=== PATIENT | female | born 1990 | race Caucasian/White ===

== ENCOUNTER 2017-02-26 08:43 | Observation (INO) | payer OTHER ==
[2017-02-26 09:16] VITALS: BMI 32.4
[2017-02-26] MEDS ORDERED: Lactated Ringer's 1,000 ML IV SCH ×2 (10:00→17:45)
--- NOTE | 2017-02-26 11:41 | ULT ---
OB ULTRASOUND: HISTORY: Contractions. Assess weight. FINDINGS: Single intrauterine gestation. Gestational age by ultrasound is 36 weeks 4 days. BPD: 36 weeks 1 day HC: 36 weeks 6 days AC: 36 weeks 6 days FL: 36 weeks 6 days EFW: 3020 g (6 lbs 11 oz) HEART RATE: 133 PLACENTA: Anterior. PRESENTATION: Vertex. AMNIOTIC FLUID: Within the normal range. BALAJI recorded at 10.3 cm. IMPRESSION: [id number]-four-day gestational age by ultrasound. POS: LUZ
[2017-02-26 13:14] LABS: Bilirubin Negative (Negative); Blood, Urine Large (Negative); Glucose, Urine (Dipstick) Negative (Negative); Ketone, Urine 80 mg/dL (Negative); Nitrite Negative (Negative); Protein, Urine (Dipstick) Negative (Neg-Trace); Urobilinogen 0.2 mg/dL (0.2-1.0)
--- NOTE | 2017-02-26 13:16 | PDOC.LDPN ---
Labor & Delivery Progress Note - Subjective Subjective: other (Pt presents with c/o back pain radiating to the front that occurs bilaterally. Denies dysuria. Reports pain started last night. ) - Objective Vital signs reviewed and normal: yes General: NAD Uterine fundus: non tender Dilation: 3 Effacement: 50% Station: -2 FHT: category 1 (130s, mod chago, +accels, no decels ) [place] contractions every: q3-7 min, irregular ctx Other exam findings: No CVAT, no ttp on abd exam, - Assessment (1) 37 weeks gestation of Code(s): Z3A.37 - 37 WEEKS GESTATION OF Current Visit: Yes Status : Acute (2) Abdominal pain affecting Code(s): O26.899 - OTH RELATED CONDITIONS, UNSPECIFIED TRIMESTER; R10.9 - UNSPECIFIED ABDOMINAL PAIN Current Visit: Yes Status: Acute -: Check CBC, BMP and UA due to c/o pain in back and possible pyelo developing. Reviewed unchanged SVE. IVF given and pt given Stadol. Discussed with pt her decision regarding whether she desires a PLTCS vs VD if delivery is imminent and she is still undecided at this time. Pt feels that this baby is smaller than her last and the EFW is 3020g ([id number]) on sono today which is smaller than her last sono at [facility].
[2017-02-26 13:17] LABS: Bacteria/HPF Rare-Few HPF (None Seen); Hyaline Casts/LPF 0-3 HYALINE CAST LPF (0-3 Hyaline); Squamous Epithelial 0-3 HPF (0-3); WBC/HPF 0-3 HPF (0-3)
[2017-02-26 13:25] LABS: #Eosinphils 0.2 thou/uL (0.0-0.7); #Lymphocytes 1.6 thou/uL (1.20-3.40); #Monocytes 1.1 thou/uL (0.11-0.59); #Neutrophils 8.9 thou/uL (1.40-6.50); %Basophils 0.1 % (0.0-1.0); %Eosinophils 1.4 % (0.0-10.0); %Lymphocytes 13.9 % (21.0-51.0); %Monocytes 9.5 % (0.0-10.0); Hematocrit 36.2 % (36.0-47.0); Mean Platelet Volume 8.1 fL (7.4-10.4); White Blood Cell (WBC) Count 11.8 thou/uL (4.8-10.8)
[2017-02-26 13:33] LABS: RBC/HPF 21-50 HPF (0-3)
[2017-02-26 13:53] LABS: Anion Gap 17 mmol/L (10-20); BUN (Urea Nitrogen) 8 mg/dL (7.0-18.7); Calc. Creatinine Clearance 169 mL/min (70-130); Calcium 8.7 mg/dL (7.8-10.44); Carbon Dioxide 18 mmol/L (22-29); Chloride 106 mmol/L (98-107); Estimated GFR-MDRD Greater than 90
[2017-02-26] MEDS ORDERED: cefTRIAXone\\ROCEPHIN 1 GM in Sodium Chloride 0.9% 100 ML IVPB SCH (16:00)
[2017-02-26] MEDS ORDERED: Sodium Chloride 0.9% 100 ML ONE (16:51)
[2017-02-26] MEDS ORDERED: Ondansetron HCl/PF 4 MG/2 ML Vial IVP PRN (17:36)
[2017-02-26] MEDS ORDERED: Promethazine HCl 25 MG/ML VIAL IM PRN (17:36)
[2017-02-26] MEDS ORDERED: Acetaminophen 500 MG TAB PO PRN (17:36)
[2017-02-26] MEDS ORDERED: Zolpidem Tartrate 5 MG TAB PO PRN (17:36)
--- NOTE | 2017-02-26 17:42 | PDOC.LDHP ---
Labor and Delivery H&P Chief complaint: other (back pain ) HPI: 27 yo @ 37w2d by LMP c/w 8 week CRL who presents with c/o bilateral back pain that radiates to the front that started last night and worsened this morning. She denies any LOF, VB. Reports good FM. Denies any known dysuria. Denies n/v/f/c. Due date: 03/17/17 Dating criteria: last menstrual period Grav: 3 Para: 2 OB History Details: 1 PTFAVD @ 35 weeks due to PPROM,without complication; 2nd VD complicated by shoulder dystocia with 3506g baby with broken clavicle. Current complications: none Abnormal US findings: No Past Medical History: Anemia, asthma Current medications: pre- vitamins Previous surgical history: none Allergies/Adverse Reactions: Allergies Allergy/AdvReac Type Severity Reaction Status Date / Time aspirin Allergy Verified 02/26/17 17:48 Social history: none - Physical Exam Vital signs reviewed and normal: yes General: NAD, other (No overt CVAT, no abdominal tenderness ) Heart: RRR Lungs: nonlabored breathing Abdomen: gravid Extremeties: no edema FHT: category 1 (140s, mod chago, +accels, no decels ) [place] contractions every: irregular ctx - Vaginal Exam cm dilated: 3 (unchanged on exam today after observation ) Effacement: 50% Station: -2 - OB Labs Blood type: A RH: negative HIV: negative RPR: negative HEPSAg: negative 1 hour GCT: negative GBS: negative Urine drug screen: not done - Assessment 37w2d IUP Back and abdominal pain, presumed pyelonephritis H/O shoulder dystocia - Plan -: Labs and exam c/w possible early pyelo and not with labor at this time. Reviewed CBC, BMP and UA. Keep for IV Rocephin and for observation to see if sx improve with interventions. Reviewed unchanged SVE. IVF given and pt given Stadol. Discussed with pt her decision regarding whether she desires a PLTCS vs VD if delivery is imminent and she is still undecided at this time. Pt feels that this baby is smaller than her last and the EFW is 3020g (2gl32eg) on sono today which is smaller than her last sono at [facility]. Monitor sx and reassess in the AM.
[2017-02-27] MEDS ORDERED: Sodium Chloride 0.9% 1,000 ML IV SCH (03:30)
[2017-02-27 07:16] LABS: #Eosinphils 0.2 thou/uL (0.0-0.7); #Monocytes 0.9 thou/uL (0.11-0.59); #Neutrophils 7.2 thou/uL (1.40-6.50); %Basophils 0.2 % (0.0-1.0); %Monocytes 8.3 % (0.0-10.0); Hematocrit 31.3 % (36.0-47.0); Red Blood Cell (RBC) Count 3.34 mill/uL (4.20-5.40); White Blood Cell (WBC) Count 10.3 thou/uL (4.8-10.8)
[2017-02-27] MEDS ORDERED: Cephalexin 250 MG CAP PO SCH ×2 (08:41→12:00)
[2017-02-27 08:49] VITALS: BP 109/70; TEMP 98.7
--- NOTE | 2017-02-28 11:48 | DIS ---
DATE OF ADMISSION: 02/26/2017 DATE OF DISCHARGE: 02/27/2017 ADMISSION DIAGNOSES: 1. Acute back and abdominal pain. 2. A 37-week and 2-day intrauterine . 3. Presumed complicated urinary tract infection versus early pyelonephritis. DISCHARGE DIAGNOSES: 1. Acute back and abdominal pain. 2. A 37-week and 2 days intrauterine . 3. Presumed complicated urinary tract infection versus early pyelonephritis. ADMISSION AND DISCHARGE PHYSICIAN: Mylene Alcantar D.O. BRIEF HOSPITAL COURSE: Ms. Ghazala Wray is a 27-year-old G4, P2 @ 37w2d who was admitted with worsening back and abdominal pain. Patient underwent an evaluation and was found not to be in labor. She did have hematuria with leukocyte esterase in urine, the patient also complains of bilateral back pain. Patient was thought to possibly have complicated UTI versus an early pyelonephritis picture. She remained afebrile and without leukocytosis during her observation. The patient received IV fluid hydration as well as Rocephin. On the morning of 02/27/2017, patient stated that her pain was much improved and did not require any IV pain medication overnight. She requested to be discharged home and was instructed to complete antibiotic course for Keflex for possible pyelonephritis. She was tolerating general diet. Pain is controlled. Patient was discharged home. MEDICATIONS: Keflex 500 mg one tablet every 6 hours for 7 days. FOLLOWUP: Patient has an appointment scheduled for 03/04/2017 with her OB provider. ACTIVITY RESTRICTIONS: None. YOKASTA
--- NOTE | 2017-03-02 16:19 | CON ---
DATE OF CONSULTATION: 03/02/2017 REFERRING PHYSICIAN: Arlene Hurd M.D. REASON FOR CONSULT: Right hydronephrosis. HISTORY OF PRESENT ILLNESS: Ms. Wray is a 27-year-old female at 37 weeks average gestational age, due date of 03/18/2017, presented on Friday 3 days ago due to right flank pain. The patient was monitored; however, admitted due to persistent discomfort. The patient requires p.o. narcotics every 2 to 4 hours due to persistent right flank pain. She denies history of nausea, vomiting, fever, or gross hematuria. Denies prior history of kidney stones. Renal ultrasound was done on admission, 02/27/2017, demonstrating moderate right hydronephrosis with echogenic lower pole 5-mm likely renal stone, left kidney is grossly unremarkable. Ultrasound demonstrated bilateral ureteral jets consistent with no significant high-grade obstruction. She is currently being managed with IV fluids, pain management for a possible medical expulsion therapy on Flomax. Urologic consultation was obtained by INSURANCE SALES SUPERVISOR this morning with requesting assistance regarding treatment of her right hydronephrosis. She did receive a gram of Rocephin on Friday. Urine dip is contaminated. Urine culture on 02/26/2017 demonstrates skin talya. The patient's family, and 2 children are at bedside. PAST MEDICAL HISTORY: None. PAST SURGICAL HISTORY: None. ALLERGIES: ASPIRIN. REVIEW OF SYSTEMS: Ten point review of systems as above. PHYSICAL EXAMINATION: VITAL SIGNS: Stable at 98.8, 97, 20, 101/63. I's and O's are 11,000 in, output is 5.4 liters. She is positive 6 liters. GENERAL: The patient appears to be in no acute distress at this time. HEENT: Unremarkable. HEART: Regular rate. LUNGS: Clear. ABDOMEN: Gravid Uterus. Subjective area of discomfort in the right lower back. GENITOURINARY: Not performed at this time. EXTREMITIES: Demonstrates bilateral pedal edema. PERTINENT LABS AND IMAGING: On admission, white count is 11.8, currently 13.1; hemoglobin 10.8 and platelets 275. There is no significant left shift that is from 02/27/2017. Creatinine is 0.6. These labs are from 02/27/2017. On 2016, urine demonstrates a contaminated specimen with 7 to 10 epithelial cells, greater than 50 rbc's, 7 to 10 wbc's, negative nitrites. Culture demonstrating mixed talya. Renal ultrasound report as above with moderate right hydronephrosis, possible right lower pole echogenic 5-mm renal calculi, bilateral ureteral jets. IMPRESSION AND PLAN: Ms. Wray is a 27-year-old female at 37 weeks average gestational age, due date 03/18/2017, presents with moderate hydronephrosis, likely right nonobstructing 5-mm renal lithiasis. Right hydronephrosis possible due to due to an occult ureteral stone; however, this is not adequately staged on renal ultrasound. There is no evidence of high- grade obstruction on previous renal ultrasound obtained 3 days ago. I will repeat the renal bladder ultrasound. I discussed with the patient regarding options of limited IVP to stage location/ degree of stone. She is open to this. I do have concerns regarding retrograde stent placement due to the patient having intermittent contractions, moreover gravid uterus at 37 weeks. If intractable pain, I discussed with patient regarding options of percutaneous nephrostomy tube placement, definitive CT after delivery and proceeding with stone treatment at elective date. YOKASTA
== END 2017-02-27 09:45 | disposition home health service (06) ==
LOC: L&D/OP 08:43 → L&D 18:42
PROVIDERS: ADMIT Obstetrics & Gynecology; ATTEND Obstetrics & Gynecology
DX: O99.89 Other specified diseases and conditions complicating pregnancy, childbirth and the puerperium (principal); R10.9 Unspecified abdominal pain; M54.9 Dorsalgia, unspecified; D64.9 Anemia, unspecified; J45.909 Unspecified asthma, uncomplicated; N13.30 Unspecified hydronephrosis; Z3A.37 37 weeks gestation of pregnancy; Z79.899 Other long term (current) drug therapy; Z88.6 Allergy status to analgesic agent; Z87.59 Personal history of other complications of pregnancy, childbirth and the puerperium
CPT/HCPCS: 36415; 76805; 80048; 81001; 85025; 87086; J0595; J0696; J7050

== ENCOUNTER 2017-02-27 20:03 | Inpatient (IN) | payer OTHER ==
[2017-02-27] MEDS ORDERED: Promethazine HCl 25 MG/ML VIAL IM PRN (22:06)
[2017-02-27 22:12] LABS: #Eosinphils 0.2 thou/uL (0.0-0.7); #Lymphocytes 1.9 thou/uL (1.20-3.40); #Monocytes 1.3 thou/uL (0.11-0.59); #Neutrophils 9.7 thou/uL (1.40-6.50); %Basophils 0.4 % (0.0-1.0); %Eosinophils 1.3 % (0.0-10.0); %Lymphocytes 14.6 % (21.0-51.0); %Monocytes 9.5 % (0.0-10.0); Mean Platelet Volume 7.6 fL (7.4-10.4); Red Blood Cell (RBC) Count 3.53 mill/uL (4.20-5.40); White Blood Cell (WBC) Count 13.1 thou/uL (4.8-10.8)
--- NOTE | 2017-02-27 22:14 | PRG ---
FOLLOWUP ULTRASOUND DATE OF SERVICE: 02/27/2017 SUBJECTIVE: I was just notified by the patient's nurse that ultrasound has given a verbal report re garding the patient's right renal ultrasound. A right renal stone is seen consistent with renal col ic. She does have ureteral jets, so there is no evidence of obstruction. I have ordered Flomax for better pain control. I have also notified Mylene Katharine, who saw the patient earlier this morning to let her know that she was here and will likely be watched overnight. We will likely watch her o n antepartum with possible release tomorrow. There is no evidence of labor at this time. We are st ill awaiting the CBC and a complete metabolic profile at this time.
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
[2017-02-27] MEDS: cefTRIAXone\\ROCEPHIN 1 GM in Sodium Chloride 0.9% 100 ML IVPB SCH (22:25)
--- NOTE | 2017-02-27 22:27 | PRG ---
DATE OF SERVICE: 02/27/2017 TIME: 2210 hours. In brief, after my communication with Dr. Mylene Alcantar, Dr. Alcantar has requested to continue her R ocephin, which she began yesterday for suspected UTI. I did notify her that her urine culture from yesterday was no growth at 24 hours. Nonetheless, to prevent superinfection we have ordered Rocephi n 1 gram IV to be given now. I have also ordered her Flomax as 0.4 mg to be given. Once the CBC an d CMP return, we will transfer her to [address] [place] [address]/antepartum for overnight observation. DIAGNOSIS: Renal colic, right side.
[2017-02-27] MEDS: Tamsulosin HCl 0.4 MG CAP PO SCH (22:34)
[2017-02-27 22:35] LABS: ALT (SGPT) 7 U/L (8-55); AST (SGOT) 12 U/L (5-34); Alkaline Phosphatase 120 U/L (40-150); Anion Gap 13 mmol/L (10-20); BUN (Urea Nitrogen) Less than 4 mg/dL (7.0-18.7); Bilirubin, Total 0.3 mg/dL (0.2-1.2); Calc. Creatinine Clearance 163 mL/min (70-130); Calcium 8.7 mg/dL (7.8-10.44); Carbon Dioxide 20 mmol/L (22-29); Chloride 108 mmol/L (98-107); Estimated GFR-MDRD Greater than 90; Globulin 2.9 g/dL (2.4-3.5)
--- NOTE | 2017-02-27 23:43 | ULT ---
BILATERAL RENAL ULTRASOUND 02/27/17 HISTORY: Right sided flank pain. TECHNIQUE: Multiplanar nguyen scale and color doppler images were obtained in a renal ultrasound. FINDINGS: There is moderate right sided hydronephrosis. There is an echogenic focus in the lower pole of the r ight kidney measuring 5 mm in greatest dimension which may represent a renal calcification. The left kidney shows no evidence of hydronephrosis or shadowing calculi. The kidneys measure 11.6 and 10.0 cm in length on the right and left, respectively. Limited visualization of the urinary bladder is unremarkable. Both ureteral jets are visualized. IMPRESSION: There is right sided hydronephrosis. This could be secondary to a distal ureteral calcification not visualized or secondary to compression of the ureter by the gravid uterus. POS: LUZ
[2017-02-27 23:51] LABS: Bacteria/HPF None Seen HPF (None Seen); Hyaline Casts/LPF 7-10 HYALINE CAST LPF (0-3 Hyaline); RBC/HPF GREATER THAN 50-TNTC HPF (0-3); Renal Epithelial None Seen HPF (0-3); Transitional Epithelial NONE SEEN HPF (0-3); Trichomonas/HPF None Seen HPF (None Seen)
[2017-02-28] MEDS: Lactated Ringer's 1,000 ML IV SCH ×6 (00:38→22:03)
[2017-02-28] MEDS ORDERED: Morphine Sulfate 2 MG/ML SYRINGE SLOW IVP SCH (01:30)
[2017-02-28] MEDS ORDERED: Morphine Sulfate 2 MG/ML SYRINGE ONE (01:31)
[2017-02-28 01:44] VITALS: BMI 31.2
[2017-02-28] MEDS ORDERED: cefTRIAXone\\ROCEPHIN 1 GM in Sodium Chloride 0.9% 100 ML IVPB SCH (07:00)
[2017-02-28] MEDS: Tamsulosin HCl 0.4 MG CAP PO SCH (08:46)
[2017-02-28] MEDS: HYDROcodone/Acetaminophen 10/325 mg Tablet PO PRN ×4 (08:46→22:03)
[2017-02-28] MEDS: Prenatal Vitamin 1 TAB PO SCH (08:46)
--- NOTE | 2017-02-28 10:22 | PRG ---
DATE OF SERVICE: 02/28/2017 HISTORY OF PRESENT ILLNESS: A 27-year-old at 37 weeks and 4 days, who was recently admitted for presumed possible complicated urinary tract infection versus early pyelonephritis, who was readmitted yesterday evening with complaints of worsening right flank pain. The patient underwent imaging demonstrating right nephrolithiasis, nonobstructing and has undergone observation with pain management. SUBJECTIVE: The patient reports that her pain has continued throughout the evening. She has had some slight pain relief with IV Stadol, however, she then had increased pain this morning. She denies fevers or chills. Reports some nausea. Denies any vomiting. The patient is able to tolerate diet. She reports some blood within her urine this morning. OBJECTIVE: VITAL SIGNS: Stable. The patient remains afebrile. CARDIOVASCULAR: Regular rate. RESPIRATORY: Unlabored breathing. ABDOMEN: Soft, mild tenderness to palpation along the right flank down to the right groin area. No left-sided costovertebral angle. Tenderness on the right side of the patient's back was not present yesterday. EXTREMITIES: No edema and negative [place] wnl LABORATORY DATA: WBC is 13.1, hemoglobin 10.8, hematocrit 33.0, neutrophils 74.2%. Creatinine is 0.61. Her AST is 12 and ALT is 7. Microscopic urine demonstrated some blood; however, does not show signs of infection today, but the patient did receive IV antibiotics x2 doses. We will await complete urine culture. ASSESSMENT AND PLAN: Ms. Ghazala Wray is a 27-year-old at 37 weeks and 4 days with renal colic and possible urinary tract infection versus early pyelonephritis. The patient received 2 doses of Rocephin. We will continue until urine culture complete. The patient was given pain management regimen and added oral [place] to regimen to improve her pain. Started Flomax to help expedite the passage of the right renal stone. [facility] q shift. Plan for continued observation today with possible d/c tomorrow depending on pain mgmt. Strain urine for stone. MTDD
[2017-02-28] MEDS ORDERED: Famotidine 20 MG TAB PO SCH (16:45)
[2017-02-28 17:46] LABS: Amnisure Test No Membranes Rupture (No Rupture)
[2017-02-28] MEDS: cefTRIAXone\\ROCEPHIN 1 GM in Sodium Chloride 0.9% 100 ML IVPB SCH (22:03)
[2017-03-01] MEDS: HYDROcodone/Acetaminophen 10/325 mg Tablet PO PRN ×4 (01:38→14:20)
[2017-03-01] MEDS: Lactated Ringer's 1,000 ML IV SCH ×4 (03:42→15:30)
[2017-03-01] MEDS: Famotidine 20 MG TAB PO SCH (10:38)
[2017-03-01] MEDS: Prenatal Vitamin 1 TAB PO SCH (10:38)
--- NOTE | 2017-03-01 12:17 | PRG ---
DATE OF SERVICE: 03/01/2017 SUBJECTIVE: The patient was feeling a little better yesterday, but started having significant pain again overnight. Per nurse, she had a very rough night. She has been taking [place] for a right-side d nephrolithiasis with renal colic and possible urinary tract infection versus early pyelonephritis. She has also been on Rocephin. On imaging, this stone was not obstructing. The patient reports t hat when she has the flank pain, she starts having contractions as well. She denies any fevers or c hills and is able to tolerate a diet with some nausea. OBJECTIVE: VITAL SIGNS: Temperature 98.5, blood pressure 107/58, pulse 88, respiratory rate 18. GENERAL: Awake, alert, in no acute distress. ABDOMEN: Soft, gravid, nontender to palpation. Right flank tender to palpation. ASSESSMENT AND PLAN: A 27-year-old G3, P2 at 37 weeks and 5 days with renal colic and possibly urin william tract infection versus early pyelonephritis. She is receiving Rocephin while we await the urine culture results, which should be back today. She will continue [place] at this time and will be rech ecked in a few hours to see if her pain is improved. If she continues to have significant problems, we can consider consulting Urology. If her pain is controlled with pain medicine, she will likely be discharged home later this afternoon.
[2017-03-01] MEDS: HYDROcodone/Acetaminophen 7.5/325 mg Tablet PO PRN ×2 (18:01→22:51)
[2017-03-01] MEDS: cefTRIAXone\\ROCEPHIN 1 GM in Sodium Chloride 0.9% 100 ML IVPB SCH (22:00)
[2017-03-02] MEDS: Lactated Ringer's 1,000 ML IV SCH ×8 (01:37→22:20)
[2017-03-02] MEDS: HYDROcodone/Acetaminophen 7.5/325 mg Tablet PO PRN ×5 (04:16→22:23)
[2017-03-02] MEDS: Famotidine 20 MG TAB PO SCH (08:14)
[2017-03-02] MEDS: Prenatal Vitamin 1 TAB PO SCH (08:14)
[2017-03-02] MEDS: Tamsulosin HCl 0.4 MG CAP PO SCH (08:18)
[2017-03-02 11:04] LABS: #Eosinphils 0.2 thou/uL (0.0-0.7); #Lymphocytes 1.7 thou/uL (1.20-3.40); #Monocytes 1.1 thou/uL (0.11-0.59); %Basophils 0.2 % (0.0-1.0); %Eosinophils 1.5 % (0.0-10.0); %Monocytes 8.3 % (0.0-10.0); Hematocrit 30.6 % (36.0-47.0); Mean Platelet Volume 7.4 fL (7.4-10.4); Red Blood Cell (RBC) Count 3.27 mill/uL (4.20-5.40)
[2017-03-02 11:29] LABS: Anion Gap 15 mmol/L (10-20); BUN (Urea Nitrogen) Less than 4 mg/dL (7.0-18.7); Calc. Creatinine Clearance 171 mL/min (70-130); Calcium 8.7 mg/dL (7.8-10.44); Carbon Dioxide 21 mmol/L (22-29); Chloride 105 mmol/L (98-107); Estimated GFR-MDRD Greater than 90
[2017-03-02] MEDS ORDERED: Morphine Sulfate 2 MG/ML SYRINGE SLOW IVP PRN (13:04)
--- NOTE | 2017-03-02 13:47 | ULT ---
BILATERAL RENAL ULTRASOUND: HISTORY: Right-sided hydronephrosis. Evaluate ureters. FINDINGS: Multiple longitudinal and transverse images of the kidneys and bladder are obtained using a Multiher tz curvilinear transducer. Real-time color flow images are obtained. Comparison is made to previou s exam from 02/27/17. Images demonstrate continued right-sided hydroureteral nephrosis. This is similar in appearance to previous exam from 3 days earlier. Right and left ureteral jets definitively visualized. The right ureteral jet is seen. This suggest s that the right ureter is not occluded due to a ureteral stone. The left kidney is unremarkable. IMPRESSION: Bilateral ureteral jets visualized. Right-sided hydronephrosis again seen. POS: BETTYE
[2017-03-02] MEDS ORDERED: Iopamidol 300 61% 100 ML VIAL FS ONE (16:49)
--- NOTE | 2017-03-02 17:11 | RAD ---
LIMITED IVP: History: 27-year-old, 37 week , right sided hydronephrosis. Technique: 5 and 10 minute images were obtained post injection of iodinated contrast without a grocery store bagger radiograph to reduce radiation to mother and fetus. FINDINGS: There is moderate to significant right sided hydronephrosis. There is some mild left sided hydroneph rosis also seen. The course of the left ureter is, however, seen all the way to the bladder. Image labelled 10 minutes demonstrate radiopaque contrast in the bladder. No significant asymmetric nephrogram is seen to suggest right sided non-excretion of contrast. The nephrograms are symmetric. IMPRESSION: Right sided and much less degree left sided hydronephrotic changes. No significant evidence of asymm etry seen in the nephrograms of the kidneys to suggest high grade obstruction. POS: LUZ
--- NOTE | 2017-03-02 17:12 | PRG ---
DATE OF SERVICE: 03/02/2017 SUBJECTIVE: The patient had several hours of no pain yesterday, but had several bouts of severe int ractable pain. This pain has been slightly improved by [place] 7.5 every 6 hours. This was recently increased to every 4 hours. She also reports having regular contractions all night, but denies any vaginal bleeding, leakage of fluid or decreased movement. She denies any blood in her urine a nd has a decreased appetite, but has no nausea or vomiting. PHYSICAL EXAMINATION: VITAL SIGNS: Blood pressure 101/63, pulse 97, respiratory rate 20, temperature 98.8. GENERAL: Awake, alert, in no acute distress, but appears uncomfortable. ABDOMEN: Soft, nontender to palpation. PELVIC: SVE, 2, 25, -3, posterior but soft. ASSESSMENT AND PLAN: A 27-year-old at 37 weeks and 6 days with renal colic. She continues to have intractable pain, so a Urology consult was placed. Per Urology, a cath UA and culture was per formed and a repeat ultrasound will be done today. We will continue the [place] at this time and awai t recommendations from Urology.
[2017-03-02] MEDS: cefTRIAXone\\ROCEPHIN 1 GM in Sodium Chloride 0.9% 100 ML IVPB SCH (22:24)
[2017-03-03] MEDS: HYDROcodone/Acetaminophen 7.5/325 mg Tablet PO PRN ×2 (02:09→05:57)
[2017-03-03] MEDS: Lactated Ringer's 1,000 ML IV SCH ×4 (02:14→21:35)
--- NOTE | 2017-03-03 08:22 | PRG ---
DATE OF SERVICE: 03/03/2017 SUBJECTIVE: The patient seen and examined with Dr. Cordero at bedside, required pain medication early this morning due to recurrent right flank pain. PHYSICAL EXAMINATION: VITAL SIGNS: Stable. I's and O's 7150 in, 4800 out. She is positive 2.3 liters. Urine culture is negative. ABDOMEN: Demonstrates gravid uterus. No rigidity, no rebound, no CVA tenderness appreciated. ASSESSMENT AND PLAN PRESENT ILLNESS: Ms. Wray is a 27-year-old female G3, P2 at 38 weeks' gestational age. The patient with right flank pain demonstrating right flank pain with right hydronephrosis with imaging demonstrating no evidence of high-grade obstruction as there is bilateral efflux of urine, IVP demonstrating no obvious ureteral calculi, no evidence of high-grade obstruction. The patient is currently undergoing conversation with her barber apprentice regarding induction of delivery, I discussed with them regarding options of nephrostomy tube. The patient considering induction. We will assess her subsequent pain after delivery of child. CT staging after delivery. We will follow along with you on this admission. patient declines nephrostomy tube placement. MARLENID
[2017-03-03] MEDS: Prenatal Vitamin 1 TAB PO SCH (08:53)
[2017-03-03] MEDS: Famotidine 20 MG TAB PO SCH (08:53)
[2017-03-03] MEDS: Tamsulosin HCl 0.4 MG CAP PO SCH (08:53)
[2017-03-03] MEDS ORDERED: Bicitra 30 ML UDCUP PO SCH (10:37)
[2017-03-03] MEDS ORDERED: Promethazine HCl 25 MG/ML VIAL IM PRN ×2 (10:37→11:07)
[2017-03-03] MEDS ORDERED: Ondansetron HCl/PF 4 MG/2 ML Vial IVP PRN ×4 (10:37→12:19)
[2017-03-03] MEDS ORDERED: Ropivacaine 0.2% 550 ML 750 ML NERVE BLCK SCH (11:00)
[2017-03-03] MEDS ORDERED: ceFAZolin Sodium 1 GM VIAL ONE (11:00)
[2017-03-03] MEDS ORDERED: Dexamethasone 4 mg/ml Vial ONE (11:01)
[2017-03-03] MEDS ORDERED: Ondansetron HCl/PF 4 MG/2 ML Vial ONE (11:01)
[2017-03-03] MEDS ORDERED: Oxytocin 10 UNITS/ML VIAL ONE ×2 (11:01→11:58)
[2017-03-03] MEDS ORDERED: Meperidine HCl/PF 25 MG/ML VIAL SLOW IVP PRN ×2 (11:06→12:19)
[2017-03-03] MEDS ORDERED: HYDROmorphone 2 MG/ML VIAL SLOW IVP PRN ×2 (11:06→12:19)
[2017-03-03] MEDS ORDERED: Naloxone HCl 0.4 mg/ml Vial IV PRN (11:07)
[2017-03-03] MEDS ORDERED: Promethazine HCl 25 MG SUPP PR PRN (11:07)
[2017-03-03] MEDS ORDERED: Naloxone HCl 0.4 mg/ml Vial IVP PRN ×2 (11:07)
[2017-03-03] MEDS ORDERED: Eucerin (Mineral Oil/Petrolatum,White) 30 gm Jar TOP PRN (11:07)
[2017-03-03] MEDS ORDERED: diphenhydrAMINE HCl 50 MG/ML 1 ML VIAL IVP PRN (11:07)
--- NOTE | 2017-03-03 11:07 | PDOC.LDPN ---
Labor & Delivery Progress Note - Subjective Subjective: other (back pain) - Objective Vital signs reviewed and normal: yes General: resting FHT: category 1 - Assessment (1) 38 weeks gestation of Code(s): Z3A.38 - 38 WEEKS GESTATION OF Current Visit: Yes Status : Acute (2) with nephrolithiasis in third trimester Code(s): O26.833 - RELATED RENAL DISEASE, THIRD TRIMESTER; N20.0 - CALCULUS OF KIDNEY Current Visit: Yes Status: Acute (3) Intractable pain Code(s): R52 - PAIN, UNSPECIFIED Current Visit: Yes Status: Acute (4) History of shoulder dystocia in prior Code(s): Z87.59 - PERSONAL HISTORY OF COMP OF PREG, CHLDBRTH AND THE PUERP Current Visit: Yes Status: Acute Plan: other -: Pt is a 27yo G3 w HO two prev both complicated by shoulder dystocia. Pt's first was delivered at 36 weeks with forceps. Pt's 2nd delivery was after multiple maneuvers for shoulder dystocia and resulting clavicular fracture, this is documented in rec'd records. Pt has elected 1CS for this delivery. Pt was admitted last for pain and concern for urologic disorder. Pt had urology consult yesterday and per consult pt pain is likely to improve after delivery. Urology discussed that a PCN could be placed until the pt labored or had scheduled delivery, however would likely not be necessary if pt was to deliver today which would also prevent exposing the pt and baby to risk of the procedure. Pt request delivery over PCN. I discussed the medical necessity of the either delivery vs PCN with pt as her pain has been intractable for 4 days, requiring opiods and IV narcotics almost around the clock. Indications for delivery for worsening maternal renal disease discussed with nursing supervisors as well, all are in agreement with plan of care.
[2017-03-03] MEDS ORDERED: Ropivacaine HCl/PF 750 ML in Premix Bag 1 BAG NERVE BLCK SCH (11:15)
[2017-03-03] MEDS ORDERED: Communication Order-Pharmacy FS SCH (11:15)
[2017-03-03] MEDS ORDERED: PHENYLEPHRINE-NS 100 MCG/ML 10 ML SYRINGE ONE (11:21)
[2017-03-03] MEDS ORDERED: Bupivacaine PF 0.5% 30 ML VIAL ONE (11:38)
[2017-03-03] MEDS ORDERED: Ketorolac Tromethamine 30 MG/ML VIAL ONE (11:56)
[2017-03-03] MEDS ORDERED: Ketorolac Tromethamine 30 MG/ML VIAL IVP SCH (12:30)
[2017-03-03] MEDS ORDERED: Bupivacaine 0.5% 10 ML VIAL SC SCH (13:15)
[2017-03-03] MEDS ORDERED: Bupivacaine PF 0.5% 30 ML VIAL FS SCH (13:30)
--- NOTE | 2017-03-03 14:39 | OP ---
DATE OF PROCEDURE: 03/03/2017 PREOPERATIVE DIAGNOSES: 1. Para 2 at 38 weeks. 2. History of shoulder dystocia with fractured clavicle at the time of previous delivery. 3. Worsening maternal renal disease with intervention required. 4. Intractable pain. 5. Desires primary as mode of delivery. SURGEON: Matt Cordero D.O. FINANCIAL PLANNING ADVISER: Jj Benz MD ANESTHESIA: Spinal per Dr. Angel. COMPLICATIONS: None. ESTIMATED BLOOD LOSS: 750 mL. FINDINGS: 1. Vigorous female infant, Apgars 8 and 9, weight 7 pounds 9 ounces, to nursery, normal appearing uterus, tubes, and ovaries bilaterally. 2. Low transverse hysterotomy without extension. 3. Surgical sites hemostatic. PROCEDURES PERFORMED: Placement of ON-Q pump. PROCEDURE IN DETAIL: The patient was taken back to the OR with IV fluids running. Once she was in the OR, spinal anesthesia was obtained. The patient was then placed in dorsal supine position. A Arrieta catheter was placed using sterile technique. SCDs were applied to her lower extremities. The abdomen was then prepped and draped in normal fashion for section. The abdomen was tested and anesthesia was found to be adequate. A Pfannenstiel skin incision was then made with the scalpel. The skin incision fascia. Once the fascia was reached, it was incised in the midline and extended superior laterally using curved Couch scissors. Luther clamps were placed on the superior border of the fascia, which was then sharply dissected off the rectus abdominis muscle. She was also completed at the inferior border of the fascia down towards the pubic symphysis. The rectus muscles were bluntly in the midline. The rectus muscles were bluntly entered and stretched laterally. An Miguel O retractor was placed into the peritoneal cavity for retraction, visualization and protection of the wound. A bladder flap was created using Metzenbaum scissors and the bladder was dissected away from the transverse hysterotomy site. Low transverse hysterotomy was made with the scalpel. Clear fluid was noted on amniotomy. The infant was delivered through the hysterotomy without difficulty. Nose and mouth were suctioned. The cord was doubly clamped and cut and the infant was handed off to special care nurses in attendance. Cord blood was collected. The placenta was delivered. The uterus was exteriorized and massaged to firm and returned to the abdominal cavity. The hysterotomy was closed using Monocryl suture in a running locked fashion with hysterotomy noted to be hemostatic after closure. The surgical sites were inspected and no areas of bleeding were noted. The hysterotomy and pericolic gutters were irrigated and suctioned dry. The ON-Q catheters were placed through the skin, subcutaneous tissue to the fascia and directed down to the bilateral corners of the incision between the rectus fascia and muscles. The catheters were primed. The fascia was then closed with 0 PDS suture from corner to corner and tied separately in the midline. Subcutaneous tissue was then irrigated and dried. Any small areas of bleeding were controlled with Bovie cauterization. Subcutaneous tissue was reapproximated with plain gut suture. The skin was sewn closed with 4-0 Monocryl and dressed with Dermabond dressing. The patient was then cleaned, dried. The ON-Q catheter tips were anchored to the skin with adhesive pants. A sterile dressing was applied over this patient's skin incision. She was then taken to recovery room in good condition. YOKASTA
[2017-03-03] MEDS ORDERED: Simethicone Chewable 80 MG TAB PO PRN (14:47)
[2017-03-03] MEDS ORDERED: diphenhydrAMINE HCl 25 MG CAP PO PRN (14:47)
[2017-03-03] MEDS ORDERED: LR w/ Pitocin 40 units/1000 ML BAG IV SCH (14:47)
[2017-03-03] MEDS ORDERED: Bisacodyl 10 MG SUPP PR PRN (14:47)
[2017-03-03] MEDS ORDERED: Ibuprofen 800 MG TAB PO SCH (14:47)
[2017-03-03] MEDS ORDERED: Adacel (T-DAP) 0.5 ML VIAL IM ONE (14:47)
[2017-03-03] MEDS ORDERED: Ketorolac Tromethamine 30 MG/ML VIAL IVP PRN (21:20)
[2017-03-03] MEDS ORDERED: Meperidine HCl/PF 25 MG/ML VIAL IM PRN (23:15)
[2017-03-04] MEDS: Ferrous Sulfate 325 MG TAB PO SCH ×2 (04:21→09:27)
[2017-03-04] MEDS: Docusate (Surfak) 240 MG CAP PO SCH ×3 (04:21→21:27)
[2017-03-04 05:18] LABS: Hematocrit 30.9 % (36.0-47.0); Mean Platelet Volume 8.3 fL (7.4-10.4); White Blood Cell (WBC) Count 15.1 thou/uL (4.8-10.8)
--- NOTE | 2017-03-04 07:28 | PRG ---
DATE OF SERVICE: 03/04/2017 SUBJECTIVE: Postop day #1 status post . The patient seen, with infant at bedside. She states that she feels well. She has received 1 dose of Toradol this morning; however, this is for incisional discomfort. She states that after the delivery, she has had no recurrence of her right flank pain pre- delivery. Her epidural has been off since last night. She feels well with no fever. Arrieta catheter demonstrating clear dilute urine and it has been checked for possible stone nidus with no evidence of passage nidus. Abdomen is soft, abdomen, no CVA tenderness is appreciated. IMPRESSION AND PLAN: 1. Ms. Wray is a 27-year-old female G3, P3 postop day #1 . 2. History of right hydronephrosis with workup demonstrating no evidence of high-grade obstruction. 3. Resolution of right flank pain, status post delivery. As there is complete resolution of her right flank pain, discussed with patient regarding options of staging CT for possible stone nidus versus observation. The patient will most likely be discharged tomorrow per [employer]. If there is recurrence of right flank pain, she is agreeable to proceeding with staging CT, which she declines at this time. There is a higher passage of stone passage rate in / patient's due to dilation of the urinary tract. No definitive stone was seen on IVP. If the patient desires observation given that she is pain free, will follow along. If no evidence of recurrent right flank pain in the next 24 hours, from a urologic perspective, the patient can be discharged home with instructions to call our office if recurrence of right flank pain. If there is recurrence of right flank pain in the next 24 hours, staging CT would be advised MTDD
--- NOTE | 2017-03-04 08:17 | PDOC.PP ---
Post Progress Note Post Day #: 1 -: doing well, back pain from susp stone resolved, min discomfort, latch issue PO intake tolerated: yes Flatus: yes Ambulation: yes Vital Signs (12 hours) Temp Pulse Resp BP 03/04/17 04:45 98.3 F 79 16 133/85 03/04/17 00:50 97.9 F 73 18 121/77 Weight Weight 160 lb - Physical Examination General: NAD Respiratory: clear to ausculation bilateral Abdominal: + bowel sounds, no distention Fundus firm & at: below umb Extremities: negative homans (B) Skin: no rash (dressing clean) Neurological: no gross focal deficits Psychiatric: normal affect Result Diagrams: 03/04/17 04:06 03/02/17 10:55 Additional Labs: Post Labs Blood Type A NEGATIVE 03/03/17 10:28 (1) 38 weeks gestation of Code(s): Z3A.38 - 38 WEEKS GESTATION OF Status: Acute (2) with nephrolithiasis in third trimester Code(s): O26.833 - RELATED RENAL DISEASE, THIRD TRIMESTER; N20.0 - CALCULUS OF KIDNEY Status: Acute (3) Intractable pain Code(s): R52 - PAIN, UNSPECIFIED Status: Acute (4) History of shoulder dystocia in prior Code(s): Z87.59 - PERSONAL HISTORY OF COMP OF PREG, CHLDBRTH AND THE PUERP Status: Acute - Assessment/Plan POD 1, sp 1CS. Doing well, back pain from suspected stone resolved. Only min soreness around incision. Only concern segundo lutz. BETHANY today.
[2017-03-04] MEDS: Prenatal Vitamin 1 TAB PO SCH ×2 (10:04→10:05)
[2017-03-04] MEDS: Famotidine 20 MG TAB PO SCH (10:05)
[2017-03-04] MEDS: Acetaminophen/Codeine 30-300mg Tablet PO PRN ×3 (12:34→21:28)
[2017-03-04] MEDS ORDERED: Ibuprofen 800 MG TAB PO SCH (15:15)
[2017-03-04] MEDS: Ibuprofen 800 MG TAB PO SCH ×2 (15:19→21:28)
[2017-03-05] MEDS: Acetaminophen/Codeine 30-300mg Tablet PO PRN ×4 (01:29→13:14)
[2017-03-05] MEDS: Ferrous Sulfate 325 MG TAB PO SCH ×2 (01:43→08:19)
[2017-03-05] MEDS: Ibuprofen 800 MG TAB PO SCH ×2 (05:29→13:14)
--- NOTE | 2017-03-05 07:18 | PRG ---
DATE OF SERVICE: 03/05/2017 SUBJECTIVE: The patient is feeling well. Denies flank pain, nausea, vomiting. OBJECTIVE: VITAL SIGNS: Stable. Urine output 2600 mL. ABDOMEN: Soft. No CVA tenderness is appreciated. IMPRESSION AND PLAN: 1. A 27-year-old female , postop day #2 status post . 2. History of right hydronephrosis, right flank pain with no definitive ureteral stone seen on IVP. 3. No evidence of high-grade obstruction as efflux is seen on renal ultrasound x2. 4. Resolution of flank pain after delivery of child. Offer patient staging CT, patient declines. I do not think that imaging is absolutely necessary at this time as the patient has no recurrence of right flank pain. Possibility of right small stone on renal ultrasound. I do recommend she follows up with me in about 6-8 week interval in which we will consider restaging CT for evaluation of right renal lithiasis. She is prompted to call me earlier if recurrence of right flank pain. The patient likely will be discharged by OB Service this afternoon. If so, please contact me so that I may provide a followup appointment in the next 6-8 weeks in my office. The patient provided my business card to contact me if recurrence of right flank pain. YOKASTA
[2017-03-05 08:14] VITALS: BP 116/76; TEMP 98.4
[2017-03-05] MEDS: Docusate (Surfak) 240 MG CAP PO SCH (08:19)
[2017-03-05] MEDS: Prenatal Vitamin 1 TAB PO SCH ×2 (08:19→08:20)
[2017-03-05] MEDS: Famotidine 20 MG TAB PO SCH (08:19)
== END 2017-03-05 13:41 | disposition home or self-care (01) | DRG 765 ==
LOC: L&D/OP 20:03 → L&D 22:21 → OBSVTOIN 22:21 → 3SW 02-28 00:08 → L&D 03-03 10:17 → 3SW 03-03 14:44
PROVIDERS: ADMIT Obstetrics & Gynecology; ATTEND Obstetrics & Gynecology
PROC: BT14ZZZ Fluoroscopy of Kidneys, Ureters and Bladder (ICD-10-PCS; 2017-03-02)
PROC: 10D00Z1 Extraction of Products of Conception, Low, Open Approach (ICD-10-PCS; principal; 2017-03-03)
PROC: 3E0334Z Introduction of Serum, Toxoid and Vaccine into Peripheral Vein, Percutaneous Approach (ICD-10-PCS; 2017-03-03)
DX: O26.833 Pregnancy related renal disease, third trimester (principal); N13.6 Pyonephrosis; Z3A.38 38 weeks gestation of pregnancy; Z37.0 Single live birth; N23 Unspecified renal colic; Z87.59 Personal history of other complications of pregnancy, childbirth and the puerperium; N28.89 Other specified disorders of kidney and ureter
CPT/HCPCS: 36415; 74410; 76770; 76805; 76815; 80048; 80053; 81001; 81015; 84112; 85025; 85027; 85461; 86780; 86850; 86900; 86901; 87081; 87086; 87340; 90384; 96360; 96361; 96372; G0378; J0595; J0690; J0696; J1100; J1885; J2270; J2274; J2405; J2590; J2795; J7050; S0020

== ENCOUNTER 2024-07-08 07:57 | Outpatient (CLI) | payer BC | END 2024-07-08 07:58 | disposition home or self-care (01) | LOC: CT 07:57 | PROVIDERS: ATTEND Physician Assistant | DX: N20.0 Calculus of kidney (principal); R10.9 Unspecified abdominal pain | CPT/HCPCS: 74176 ==